=== PATIENT | male | born 1945 | race Caucasian/White ===

== ENCOUNTER → 2021-02-05 | Outpatient (CLI) | payer OTHER | LOC: CARD 09:00 | PROVIDERS: ATTEND Family Medicine | DX: I51.7 Cardiomegaly (principal) | CPT/HCPCS: 93306 ==

== ENCOUNTER → 2021-02-05 | Outpatient (CLI) | payer OTHER ==
[2021-02-05 10:08] VITALS: BP 136/77
--- NOTE | 2021-02-05 15:07 | Cardiology Stress Test Report ---
Stress Test Report Date of Procedure/Referring: Date of Procedure: Feb 05, 2021 PCP Jazzy Jane [facility] Admitting Physician Indications: Syncope. Baseline EKG: Baseline EKG: Sinus rhythm with nonspecific intraventricular conduction delay. Summary/Conclusion: PROCEDURE: The patient was exercised for a total of 5 minutes and 30 seconds of the standard Jaspreet protocol achieving a maximum met level of 7.1.The resting heart rate was 61 bpm and the peak heart rate was 129 bpm, which represents 89% of the maximum predicted heart rate.The resting blood pressure was 136/77 mmHg and the peak blood pressure was 216/77 mmHg. This represents a normal heart rate and a hypertensive blood pressure response to exercise. The test was stopped due to fatigue. There was no exercise-induced chest discomfort. There were isolated premature supraventricular and premature ventricular complexes during the test. There were no exercise-induced electrocardiogram changes. The patient exhibited good exercise capacity for age. IMPRESSION 1. Normal heart rate and i.e. hypertensive blood pressure response to exercise. 2. There was no chest discomfort during the test. 3. There were isolated premature supraventricular and premature ventricular complexes during the test. 4. There were no stress-induced electrocardiogram changes. 5. The patient exhibited good exercise capacity for age at 5 minutes and 30 seconds of the Jaspreet protocol. 6. This is an overall low risk result for predicting future cardiac events. Certain portions of this document may have been dictated utilizing voice recognition technology. Inherent to this technology, typographical and grammatical errors may exist. As much as I am diligent to identify and correct these mistakes, some errors may remain in the document. WOOD VO JR, MD Feb 05, 2021 15:07
== END ==
LOC: CARD 10:00
PROVIDERS: ATTEND Nurse Practitioner
DX: R55 Syncope and collapse (principal)
CPT/HCPCS: 93017